=== PATIENT | female | born 1935 | race Asian ===

== ENCOUNTER 2016-07-30 05:03 | Inpatient (IN) | payer OTHER, MEDICARE ==
[~2016-07-30] VITALS: Ht 154.9 cm; Wt 45.4 kg
[~2016-07-30 05:03] MED LIST: ATORVASTATIN CA10 M1 PO; CLARITIN10 M1 PO; DIOVAN HCT 1601 EAC1 PO; PREMPRO 0.3 MG1 EACH PO; TOPROL XL50 M1 PO
[2016-07-30] MEDS ORDERED: AMLODIPINE BES2.5 M1 PO (07:55)
[2016-07-30] MEDS ORDERED: VITAMIN C60 MG PO (07:56)
[2016-07-30] MEDS ORDERED: VITAMIN B12-FO1 EACH PO (07:57)
[2016-07-30] MEDS ORDERED: DAILY MULTIPLE1 EACH PO (07:58)
--- NOTE | 2016-07-30 09:50 | Admission Core Measures ---
Admission Meds I reviewed the following Meds: Current Medications Sig/Freddy Start time Last Medication Dose Stop Time Status Admin Acetaminophen 975 MG ONCE 07/30 NR (Tylenol) 07/30 2358 Cefazolin Sodium 2,000 MG ONCE 07/30 NR (Kefzol-Ancef Inj) 07/30 2358 Oxycodone HCl 10 MG ONCE 07/30 AC (OxyCONTIN) 07/30 2358 Oxycodone HCl 10 MG ONCE 07/30 NR (Roxicodone) 07/30 2358 Acute Coronary Syndrome Inclusion Criteria ACS Diagnosis No Inpatient Core Measures LDL Reminder: If No, please order W/I first 24hr of stay Congestive Heart Failure Inclusion Criteria CHF Diagnosis No Cerebrovascular accident Inclusion Criteria CVA/TIA Diagnosis No Inpatient Core Measures Bedside Swallow Eval Reminder: If BSE failed, place ST order Antithrombotic Reminder: Order Antithrombotic Medication by end of day 2 Antithrombotic Reminder: Document Reason Antithrombotic Not ordered by end of day 2 AFIB/Flutter Reminder: If Present, add to problem list AFIB/Flutter Reminder: Order Anticoag Medication for pts with AFIB/Flutter Atherosclerosis Reminder: If Present, add to problem list LDL Reminder: If No, please order W/I first 24hr of stay PT Order Reminder: If No, please order Venous thromboembolism Inpatient Core Measures VTE Risk Factors: Age > 40, Surgery VTE Prophylaxis Ordered Inpt Mech & Pharm No Mech VTE prophylaxis d/t No contraindications No VTE Pharm Prophylaxis d/t No contraindications Inclusion Criteria - Per Current guidelines, there needs to be overlap - treatment for the first 5 days of Warfarin therapy. - Parenteral Anticoagulation (IV or SC) needs to be - given along with Warfarin therapy. VTE Diagnosis No VTE Type NONE VTE Confirmed by (Test) NONE Problem List As ranked by this Provider includes Assessment & Plan 1. Status post total hip replacement, right HOME MEDS Home Med List Amlodipine Besylate 2.5 MG TABLET 1 TAB PO DAILY HEART HEALTH (Reported) Atorvastatin Calcium 10 MG TABLET 1 TAB PO DAILY CHOLESTEROL (Reported) Cyanocobalamin/Folic Acid (Vitamin S39-Xzcin Acid Tablet) 500 MCG-400 MCG TABLET 1 TAB PO DAILY SUPP (Reported) Estrogen,Con/M-Progest Acet (Prempro 0.3 MG-1.5 MG Tablet) 0.3 MG-1.5 MG TABLET 1 TAB PO DAILY HRT (Reported) Loratadine (Claritin) 10 MG TABLET 1 TAB PO DAILY ALLERGIES (Reported) Multivitamin (Daily Multiple Vitamin) 1 EACH TABLET 1 TAB PO DAILY SUPP ( Reported) Valsartan/Hydrochlorothiazide (Diovan Hct 160-25 MG Tablet) 160 MG-25 MG TABLET 1 TAB PO DAILY BP (Reported)
--- NOTE | 2016-07-30 10:20 | Patient Discharge Instructions ---
Discharge Instructions General Discharge Information You were seen/treated for: Right hip pain You had these procedures: 07/30/2016 right total hip arthroplasty Watch for these problems: Redness, swelling, fever, signs of infection. Uncontrolled pain, Excessive bleeding. Decreased range of motion or unable to bear weight. Chest pain, shortness of breath. Call Surgeon to remove: Stitches Do not soak the wound: Yes No bath, but you may shower: Yes Other wound care: Daily dry dressing changes starting 48 hours after surgery. Diet Continue normal diet: Yes Activity Activity Self Limited: Yes Activity Limited to: Weight bear as tolerated Additional ACTIVITY Info: Daily physical therapy Acute Coronary Syndrome Inclusion Criteria At DC or during hospital stay patient has or had the following: ACS DIAGNOSIS No Discharge Core Measures Meds if any: Prescribed or Continued at Discharge Meds if any: NOT Prescribed or Continued at Discharge Congestive Heart Failure Inclusion Criteria At DC or during hospital stay patient has or had the following: CHF DIAGNOSIS No Discharge Core Measures Meds if any: Prescribed or Continued at Discharge Meds if any: NOT Prescribed or Continued at Discharge Cerebrovascular accident Inclusion Criteria At DC or during hospital stay patient has or had the following: CVA/TIA Diagnosis No Discharge Core Measures Meds if any: Prescribed or Continued at Discharge Meds if any: NOT Prescribed or Continued at Discharge Venous thromboembolism Inclusion Criteria VTE Diagnosis No VTE Type NONE VTE Confirmed by (Test) NONE Discharge Core Measures - Per Current guidelines, there needs to be overlap - treatment for the first 5 days of Warfarin therapy. - If discharged on Warfarin prior to 5 days of - overlap therapy, the patient will need to be - assessed for post discharge needs including - *Post discharge parental anticoagulation - *Warfarin and/or parental anticoagulation education - *Follow up date to check INR post discharge At least 5 days overlap therapy as Inpatient No Meds if any: Prescribed or Continued at Discharge Note: Overlap Therapy is Warfarin and Anticoagulant Meds if any: NOT Prescribed or Continued at Discharge
[2016-07-30] MEDS ORDERED: ASPIRIN325 M2 PO (10:22)
[2016-07-30] MEDS ORDERED: COLACE100 M1 PO (10:22)
[2016-07-30] MEDS ORDERED: DILAUDID2 M1 PO (10:22)
[2016-07-30] MEDS ORDERED: MIRALAX17 G1 PO (10:22)
--- NOTE | 2016-07-30 10:23 | Surg Short-stay <48hrs Dis Sum ---
Visit Information Visit Dates Admission Date: 07/30/16 Discharge Date: 07/31/16 Surgical Short Stay DC Summary Admission Diagnosis: Right hip pain Final Diagnosis: Same Procedure(s): 07/30/2016 right total hip arthroplasty Summary/Significant Findings: Patient admitted to floor following procedure below. Patient ambulated with PT upon arrival to the floor. Patient continued to progress well. Upon discharge patient is afebrile, tolerating diet, pain controlled, ambulating well with rolling walker and PT. Condition at Discharge: Good Discharge Disposition: home health services Discharge instructions provided to patient/family: Yes Post discharge follow-up plan: Call office to schedule appointment
--- NOTE | 2016-07-30 12:53 | RADIOLOGY REPORT ---
EXAMINATION: XR HIP, RIGHT CLINICAL INFORMATION: Right hip replacement COMPARISON: None TECHNIQUE: Two views of the right hip. FINDINGS: The femoral head prosthesis is well centered within the acetabular cup which exhibits approximately 50 degrees of lateral version and 28 degrees of anteversion. The femoral stem is positioned within the proximal femoral diaphysis and there is no evidence of endosteal cortical scalloping or periprosthetic fracture. There is soft tissue gas around the right hip. An air-fluid level is present at the anterior aspect of the postoperative hip. Within the visualized lower lumbar spine, there is degenerative disc space narrowing and osteophyte formation. IMPRESSION: Satisfactory positioning and alignment of components of the right total hip arthroplasty.
--- NOTE | 2016-07-30 13:59 | PN- Orthopedic ---
Subjective Subjective: Post op check Awake and alert No complaints Pain well controlled No nausea Has not seen PT yet Objective Vital Signs and I&Os VSS, afebrile Has not voided yet spontaneously Tolerating clears General: alert and oriented times three Chest: clear anteriorly bilaterally, RRR Abd: soft, good bs Ext: warm, no edema, positive sensate, good strength BLE, no calf tenderness Wound: ice pack in place, dressing dry Assessment/Plan Assessment/Plan 81 yo female s/p R THR asa 325mg po bid for dvt ppx pain mgmt fu void PT - WBAT Core Measures/Miscellaneous Venous Thromboembolism VTE Risk Factors: Age > 40, Surgery VTE Contraindications: No Contraindications VTE Prophylaxis Ordered Inpt: Mech & Pharm VTE Diagnosis: No VTE Type: NONE VTE Confirmed by (Test): NONE Beta Carmenza Is Beta Carmenza a Home Med? Yes If Yes, Was This Ordered Today? Yes Antibiotics Is Patient on Antibiotics? Yes If Yes: prophylaxis (24 hrs post op)
[2016-07-30 15:15] VITALS: BP 162/56
--- NOTE | 2016-07-30 16:00 | Operative Report ---
Operative/Inv Procedure Report Surgery Date: 07/30/16 Name of Procedure: Right total hip replacement Pre-Operative Diagnosis: Primary right hip DJD Post-Operative Diagnosis: Same Estimated Blood Loss: 250 Surgeon/Or Scrub Tech: SUNITHA VANCE,HAKAN [place] Anesthesia: block Operative/Procedure Note Note: Description of Procedure: The patient was taken to the operating room and positively identified. After induction of spinal anesthesia and administration of appropriate pre-operative antibiotics, the patient was positioned supine on the operating room table and all bony prominences were well padded. After performing a surgical timeout, the right lower extremity was prepped and draped in the usual sterile fashion. A direct anterior approach was made to the right hip. The incision was carried sharply through superficial soft tissues to the level of the fascia. Meticulous hemostasis was maintained with Bovie electocautery. The fascia over the tensor fascia bree muscle was opened sharply and the interval between the TFL and the sartorius was entered bluntly taking care to stay lateral to the lateral femoral cutaneous nerve. Retractors were placed around the femoral neck and the pericapsular fat was identified. The ascending branches of the lateral femoral circumflex vessels were identified and carefully coagulated. The pericapsular fat and anterior capsule were then resected. A napkin ring osteotomy was performed and the femoral head was removed without difficulty. Attention was then turned to the acetabulum. After appropriate placement of retractors, the acetabulum was exposed. Soft tissue was cleaned from the acetabular margin and notch. Overhanging osteophytes were removed and the teardrop was exposed. The acetabulum was then sequentially reamed to accept a 52 mm Raul Tritanium hemispherical solid back shell. This was impacted into place in the appropriate position and fitted with a 32 mm Trident X3 zero degree polyethylene insert. Attention was then turned to the femur. After performing the appropriate ligament releases, the proximal femur was exposed. It was then sequentially broached to accept a size 3 Greenwood accolade 2 stem. This was trialed for leg length and stability. The trial component was removed and the final component was impacted into place. The trunnion was carefully cleaned and fit with a 32 mm, +4 Biolox delta ceramic femoral head. The hip was reduced and put through a full range of motion and found to be stable. The articular space was then irrigated with sterile saline. The periarticular soft tissues were infilitrated with Marcaine. The fascial layer was closed with interrupted #1 vicryl suture and the skin was re-approximated with interrupted 2 -0 vicryl. The skin was closed with a running 3-0 V-Lock suture. Steri-strips and a sterile dressing were applied. The patient was awakened and taken to the recovery room in satisfactory condition.
[2016-07-30 17:26] VITALS: BP 160/64
[2016-07-30 19:00] VITALS: BP 130/60
[2016-07-30 21:00] VITALS: BP 140/60
[2016-07-31 01:04] VITALS: BP 128/60
[2016-07-31 06:28] VITALS: BP 114/58
--- NOTE | 2016-07-31 08:02 | PN- Orthopedic ---
Subjective Subjective: NAEO. Patient states that she had difficulty sleeping due to return of sciatica pain on her right side and following surgery. Surgical site pain controlled at this point. Tolerating diet without nausea vomiting. She ambulated physical therapy yesterday and they anticipate her being cleared sometime today for home PT. Denies CP/SOB. Objective Vital Signs and I&Os Vital Signs Date Time Temp Pulse Resp B/P Pulse O2 O2 Flow FiO2 Ox Delivery Rate 07/31 0528 97.4 64 19 114/58 100 Room Air 07/31 0104 98.0 64 19 128/60 97 Room Air 07/30 2100 97.8 65 18 140/60 98 Room Air 07/30 1900 98.1 65 18 130/60 98 Room Air 07/30 1726 97.6 61 18 160/64 98 Room Air 07/30 1515 97.5 61 18 162/56 98 Intake & Output 07/31 0800 / 0000 07/30 1600 07/30 0800 07/30 0000 07/29 1600 Intake Total 770 420 Output Total 600 1050 Balance 170 -630 Intake, IV 650 300 Intake, Oral 120 120 Output, Urine 600 1050 Patient 99 lb 15.99 oz Weight Physical Exam: General: NAD, comfortable, A&Ox3 Chest: NRD, breathing comfortably on RA. RRR. Abdomen: soft, nontender, nondistended. Ext: Right hip dressing c/d/i. Right thigh compartments soft. No calve swelling /TTP, neurovascularly intact bilateral lower extremities Current Medications: Current Medications Sig/Freddy Start time Last Medication Dose Route Stop Time Status Admin Acetaminophen 650 MG Q4P PRN 07/30 1500 AC 07/31 PO 0506 Acetaminophen 975 MG ONCE 07/30 0000 DC PO 07/30 2359 Amlodipine Besylate 2.5 MG DAILY 07/31 1000 AC PO Aspirin 325 MG BID 07/30 1000 AC 07/30 PO 2121 Atorvastatin Calcium 10 MG 1700 07/31 1700 AC PO Cefazolin Sodium 2 GM IQ8 07/30 1600 DC 07/31 N/A 1 UNIT IV 07/31 0029 0159 Cefazolin Sodium 2,000 MG ONCE 07/30 0000 DC IV 07/30 2359 Docusate Sodium 100 MG DAILY 07/30 1000 AC 07/30 PO 1753 Estrogens Conjugated 0.3 MG DAILY 07/31 1000 AC PO Fentanyl Citrate 100 MCG .ST-MED ONE 07/30 937 DC IM 07/30 938 Hydrochlorothiazide 25 MG DAILY 07/31 1000 AC PO Hydromorphone HCl 2 MG Q4P PRN 07/30 1500 AC PO Hydromorphone HCl 4 MG Q4P PRN 07/30 1500 AC PO Hydromorphone HCl 1 MG Q3P PRN 07/30 1500 AC IV Ketorolac 15 MG Q8P PRN 07/30 1500 AC Tromethamine IV 08/02 1451 Losartan Potassium 50 MG DAILY 07/31 1000 AC PO Medroxyprogesterone 1.25 MG DAILY 07/31 1000 AC Acetate PO Metoprolol Succinate 50 MG DAILY 07/31 1000 AC PO Midazolam HCl 4 MG .STK-MED ONE 07/30 937 DC IM 07/30 938 Ondansetron HCl 4 MG Q6P PRN 07/30 1500 AC 07/30 IV 1748 Oxycodone HCl 10 MG .STK-MED ONE 07/30 0759 DC PO 07/30 0800 Oxycodone HCl 10 MG ONCE 07/30 0000 DC PO 07/30 2359 Oxycodone HCl 10 MG ONCE 07/30 0000 DC PO 07/30 2359 Patient Medication 1 UNIT 1000 / 1000 [facility] ED 07/31 1001 Patient Medication 1 UNIT 1000 07/31 1000 [facility] ED 07/31 1001 Patient Medication 1 UNIT 1000 07/31 1000 [facility] ED 07/31 1001 Patient Medication 1 UNIT 1700 / 1700 DC / Teaching ED / 1701 1848 Polyethylene Glycol 17 GM DAILY 07/30 1000 07/30 PO 1753 Sodium Chloride 1,000 ML .[id number] 07/30 1500 07/31 IV 0506 Tranexamic Acid 2,000 MG .STK-MED ONE 07/30 937 DC IV 07/30 0939 Assessment/Plan Assessment/Plan 81yo F POD#1 s/p right total hip placement. AVSS, patient stable. Has some sciatic pain which is likely related to position and manipulation during surgery as well as postoperative inflammation and likely to resolve on its own. - Pain control - When necessary Zofran - Bowel regimen - Out of bed and ambulate with PT - Leave dressing in place, change tomorrow - Alps/Teds - Aspirin 325 mg by mouth twice a day for DVT prophylaxis - I/O's - Follow-up a.m. labs - DC home cleared by PT - Discussed with Dr. Jackson Core Measures/Miscellaneous Venous Thromboembolism VTE Risk Factors: Age > 40, Surgery VTE Contraindications: No Contraindications VTE Prophylaxis Ordered Inpt: Mech & Pharm VTE Diagnosis: No VTE Type: NONE VTE Confirmed by (Test): NONE Beta Carmenza Is Beta Caremnza a Home Med? Yes If Yes, Was This Ordered Today? Yes Antibiotics Is Patient on Antibiotics? No
[2016-07-31 08:55] VITALS: BP 125/68
[2016-07-31 09:15] LABS: ABSOLUTE BASOPHIL COUNT 0 /CUMM (0.0-0.2); ABSOLUTE EOSINOPHIL COUNT 0 /CUMM (0.0-0.7); ABSOLUTE GRANULOCYTE CT 6.4 /CUMM (1.4-6.5); ABSOLUTE LYMPH COUNT 1.9 /CUMM (1.2-3.4); ABSOLUTE MONOCYTE COUNT 0.8 /CUMM (0.10-0.60); BASOPHIL % 0.4 % (0.0-2.0); EOSINOPHIL % 0.2 % (0-5); GRANULOCYTE % 69.5 % (42.2-75.2); HEMATOCRIT 27.7 % (37-47); MEAN CORPUSCULAR HGB 33.5 PG (27.0-31.0); MEAN CORPUSCULAR HGB CONC 34.8 G/DL (33.0-37.0); MEAN CORPUSCULAR VOLUME 96.3 FL (81.0-99.0); MEAN PLATELET VOLUME 8.9 FL (7.4-10.4); PLATELET COUNT 175 /CUMM (130-400); RBC DISTRIBUTION WIDTH 13.9 % (11.5-14.5); RED BLOOD CELL CT 2.87 /CUMM (4.20-5.40); WHITE BLOOD CELL COUNT 9.1 /CUMM (4.8-10.8)
[2016-07-31 11:08] VITALS: BP 125/68
== END 2016-07-31 11:35 | disposition home health service (06) | DRG 470 ==
LOC: ENRESERVTM → ENRESERVDT → 2NA 05:03 → SDA 05:03 → 2NA 14:08
PROVIDERS: Physician Assistant Surgical; ADMIT Orthopaedic Surgery
PROC: 0SR904A Replacement of Right Hip Joint with Ceramic on Polyethylene Synthetic Substitute, Uncemented, Open Approach (ICD-10-PCS; principal; 2016-07-30)
DX: M16.11 Unilateral primary osteoarthritis, right hip (principal); I10 Essential (primary) hypertension; M54.31 Sciatica, right side; E78.00 Pure hypercholesterolemia, unspecified
CPT/HCPCS: 2NASP; 73502-RT; 82436; 88304; 97116-GO; 97161-GP; 97530-GO; J0690; J0735; J2405